=== PATIENT | female | born 1980 | race African-American/Black ===

== ENCOUNTER 2018-10-27 23:37 | Emergency (ER) | payer MEDICAID, OTHER ==
[~2018-10-27] VITALS: Ht 172.7 cm; Wt 90.7 kg
[2018-10-28 00:07] VITALS: BP 135/80
== END 2018-10-28 00:45 | disposition left against medical advice (07) ==
LOC: ER 23:37 → EDBD 23:37 → ER 10-28 00:45
DX: Z02.89 Encounter for other administrative examinations (principal); Z53.21 Procedure and treatment not carried out due to patient leaving prior to being seen by health care provider

== ENCOUNTER 2022-08-18 15:39 | Inpatient (IN) | payer MEDICAID ==
[~2022-08-18] VITALS: Ht 165.1 cm; Wt 89.0 kg
[2022-08-18] MEDS ORDERED: KETOROLAC TROMETH 30 MG/ML 1ML VIAL IV ONE (16:00)
[2022-08-18] MEDS ORDERED: SODIUM CHLORIDE 0.9% 1,000 ML IVB ONE (16:00)
[2022-08-18] MEDS ORDERED: PANTOPRAZOLE 40 MG/10 ML VIAL INJ IV ONE (16:00)
[2022-08-18 16:06] LABS: Basophils # (auto) 0.1 10 ^3/uL (0-0.2); Basophils % (auto) 0.5 % (0.0-2.0); Eosinophils # (auto) 0.2 10 ^3/uL (0-0.8); Eosinophils % (auto) 1.6 % (0.0-7.0); Hematocrit 46.7 % (36.0-46.0); Hemoglobin 15.5 g/dL (12.2-16.2); Lymphocytes # (auto) 1.7 10 ^3/uL (0.4-5.4); Lymphocytes % (auto) 15.4 % (10.0-50.0); Mean Corpuscular Hemoglobin 32.8 pg (28.0-32.0); Mean Corpuscular Hgb Conc. 33.3 g/dL (32.0-36.0); Mean Corpuscular Volume 98.5 fL (80.0-100.0); Neutrophils # (auto) 8.3 10 ^3/uL (1.6-8.6); Neutrophils % (auto) 73.5 % (37.0-80.0); Nucleated Red Blood Cells % 0.1 %; Red Blood Cells 4.74 10^6/uL (4.0-5.20); Red Cell Distribution Width 14.3 % (11.8-14.3); White Blood Cell 11.3 10^3/uL (4.4-10.8)
[2022-08-18 16:23] LABS: Calcium 10.2 mg/dL (8.5-10.1); Potassium 4.2 mmol/L (3.5-5.1)
[2022-08-18 16:28] LABS: BUN/Creatinine Ratio 9.8 (10.0-20.0); Bilirubin, Total 0.6 mg/dL (0.2-1.0); INR 1.04 (0.9-1.15); Total Protein 9.5 g/dL (6.4-8.2)
[2022-08-18] MEDS ORDERED: PANT40TA2 PO (17:19)
[2022-08-18] MEDS ORDERED: ONDA-144 PO (17:19)
[2022-08-18] MEDS ORDERED: SODIUM CHLORIDE 0.9% 1,000 ML IV ONE ×2 (17:30→20:15)
[2022-08-18] MEDS ORDERED: MORPHINE SULFATE INJ 2 MG/ml SYRG IV PRN (21:45)
[2022-08-18] MEDS ORDERED: ONDANSETRON HCL 4 MG/2 ML VIAL IV PRN (21:45)
[2022-08-18] MEDS ORDERED: ACETAMINOPHEN 325 MG TAB PO PRN (21:45)
[2022-08-19] VITALS (7 sets, daily range): BP systolic 119–132; BP diastolic 69–87
[2022-08-19] MEDS: HYDROcodone-ACET 5/325MG TAB PO PRN ×2 (00:51→18:10)
[2022-08-19] MEDS ORDERED: TRAZ1TAB12 PO (03:04)
[2022-08-19] MEDS ORDERED: SERT-160 PO (03:04)
[2022-08-19] MEDS ORDERED: LURA80TA PO (03:04)
[2022-08-19 06:06] LABS: Basophils # (auto) 0 10 ^3/uL (0-0.2); Basophils % (auto) 0.3 % (0.0-2.0); Eosinophils # (auto) 0.2 10 ^3/uL (0-0.8); Eosinophils % (auto) 2.1 % (0.0-7.0); Hematocrit 40.7 % (36.0-46.0); Hemoglobin 13.9 g/dL (12.2-16.2); Lymphocytes # (auto) 1.9 10 ^3/uL (0.4-5.4); Lymphocytes % (auto) 18.9 % (10.0-50.0); Mean Corpuscular Hemoglobin 33.9 pg (28.0-32.0); Mean Corpuscular Hgb Conc. 34.3 g/dL (32.0-36.0); Mean Corpuscular Volume 98.7 fL (80.0-100.0); Monocytes % (auto) 9.5 % (0.0-12.0); Neutrophils % (auto) 69.2 % (37.0-80.0); Nucleated Red Blood Cells % 0.2 %; Red Blood Cells 4.12 10^6/uL (4.0-5.20); Red Cell Distribution Width 13.6 % (11.8-14.3); White Blood Cell 10.1 10^3/uL (4.4-10.8)
[2022-08-19 06:25] LABS: Potassium 4.3 mmol/L (3.5-5.1)
[2022-08-19 06:33] LABS: Albumin 3.6 g/dL (3.4-5.0); BUN/Creatinine Ratio 11.1 (10.0-20.0); Bilirubin, Total 0.5 mg/dL (0.2-1.0); Total Protein 7.9 g/dL (6.4-8.2)
[2022-08-19] MEDS: LURASIDONE 60 MG PO SCH (18:00)
[2022-08-19] MEDS: ONDANSETRON ODT 4 MG TAB PO SCH (18:09)
[2022-08-19] MEDS: TEMAZEPAM 15 MG CAP PO PRN (20:10)
[2022-08-19] MEDS: traZODone HCL 50 MG TAB PO SCH (20:10)
[2022-08-20 05:00] VITALS: BP 118/78
[2022-08-20] MEDS: ONDANSETRON ODT 4 MG TAB PO SCH ×4 (06:17→17:55)
[2022-08-20] MEDS: HYDROcodone-ACET 5/325MG TAB PO PRN ×2 (06:42→21:40)
[2022-08-20 09:00] VITALS: BP 116/68
[2022-08-20] MEDS: PANTOPRAZOLE 40 MG TAB PO SCH (10:00)
[2022-08-20] MEDS: SERTRALINE HCL 50 MG TAB PO SCH (10:00)
[2022-08-20] MEDS ORDERED: MORPHINE SULFATE INJ 2 MG/ml SYRG IV PRN (11:45)
[2022-08-20] MEDS: SODIUM CHLORIDE 0.9% 1,000 ML IV SCH ×2 (11:49→21:15)
[2022-08-20 13:00] VITALS: BP 109/53
[2022-08-20 17:00] VITALS: BP 129/75
[2022-08-20] MEDS: LURASIDONE 60 MG PO SCH (17:55)
[2022-08-20 20:00] VITALS: BP 119/65
[2022-08-20] MEDS: traZODone HCL 50 MG TAB PO SCH (21:35)
[2022-08-20] MEDS: TEMAZEPAM 15 MG CAP PO PRN (21:35)
[2022-08-20 22:00] VITALS: BP 119/65
[2022-08-21] MEDS: ONDANSETRON ODT 4 MG TAB PO SCH ×3 (00:03→12:14)
[2022-08-21 05:00] VITALS: BP 103/56
[2022-08-21] MEDS: SODIUM CHLORIDE 0.9% 1,000 ML IV SCH (07:15)
[2022-08-21 09:00] VITALS: BP 97/62
[2022-08-21] MEDS ORDERED: cefTRIAXone 1GM/50ML D5W 50 ML IV SCH ×2 (09:00→13:15)
[2022-08-21] MEDS: SERTRALINE HCL 50 MG TAB PO SCH (09:54)
[2022-08-21] MEDS: PANTOPRAZOLE 40 MG TAB PO SCH (09:54)
[2022-08-21] MEDS ORDERED: hydrOXYzine 25 MG TAB or CAP PO PRN (12:30)
[2022-08-21 13:00] VITALS: BP 116/77
[2022-08-21] MEDS: HYDROcodone-ACET 5/325MG TAB PO PRN (13:28)
[2022-08-21] MEDS ORDERED: HYDR1CAP27 PO (14:58)
== END 2022-08-21 16:43 | disposition home or self-care (01) ==
LOC: ER 15:39 → OVERFLOW 21:42 → CENTRAL 08-19 01:22
PROVIDERS: ADMIT Nurse Practitioner; ATTEND Internal Medicine
DX: K82.8 Other specified diseases of gallbladder (principal); N17.9 Acute kidney failure, unspecified; K76.0 Fatty (change of) liver, not elsewhere classified; E11.9 Type 2 diabetes mellitus without complications; F10.10 Alcohol abuse, uncomplicated; F17.210 Nicotine dependence, cigarettes, uncomplicated; F31.60 Bipolar disorder, current episode mixed, unspecified; F41.9 Anxiety disorder, unspecified; F51.04 Psychophysiologic insomnia; Z20.822 Contact with and (suspected) exposure to COVID-19; Z88.0 Allergy status to penicillin; Z81.8 Family history of other mental and behavioral disorders; Z80.3 Family history of malignant neoplasm of breast; Z83.3 Family history of diabetes mellitus; Z85.43 Personal history of malignant neoplasm of ovary; Z91.51 Personal history of suicidal behavior
CPT/HCPCS: 36415; 74176; 74181; 76705; 78226; 80053; 83690; 85025; 85610; 85730; 87426; 96361; 96374; 96375; C9113; G0378; J0696; J1885; J2405; Q0162

== ENCOUNTER 2024-05-21 06:23 | Inpatient (IN) | payer MEDICAID ==
[~2024-05-21] VITALS: Ht 165.1 cm; Wt 86.8 kg
[~2024-05-21 06:23] MED LIST: BUPR200T49 PO; HYDR-3682 PO; HYDR1CAP27 PO; LURA80TA2 PO; ONDA-144 PO; PANT40TA2 PO; SERT-160 PO; TRAZ1TAB12 PO
[2024-05-21 07:06] LABS: Basophils # (auto) 0 10 ^3/uL (0-0.2); Basophils % (auto) 0.4 % (0.0-2.0); Eosinophils # (auto) 0 10 ^3/uL (0-0.8); Eosinophils % (auto) 0.6 % (0.0-7.0); Hematocrit 42.3 % (36.0-46.0); Hemoglobin 14.2 g/dL (12.2-16.2); Lymphocytes # (auto) 1.6 10 ^3/uL (0.4-5.4); Lymphocytes % (auto) 20.7 % (10.0-50.0); Mean Corpuscular Hemoglobin 31.9 pg (28.0-32.0); Mean Corpuscular Hgb Conc. 33.6 g/dL (32.0-36.0); Mean Corpuscular Volume 94.9 fL (80.0-100.0); Monocytes % (auto) 12.9 % (0.0-12.0); Neutrophils % (auto) 65.4 % (37.0-80.0); Nucleated Red Blood Cells % 0.2 %; Platelet Count (auto) 307 10^3/uL (140-450); Red Blood Cells 4.46 10^6/uL (4.0-5.20); Red Cell Distribution Width 14.6 % (11.8-14.3); White Blood Cell 7.7 10^3/uL (4.4-10.8)
--- NOTE | 2024-05-21 07:12 | ED.PDOC ---
GI ASSESSMENT HPI Comments 43Y F presents to ED for chief complaint abd pain x4 days. Additional symptoms include nausea, vomiting, dysuria, urinary frequency, and urinary urgency. Pt believes she has a UTI due to not drinking enough water. Per pt, abd pain starts at RUQ and radiates to LUQ. Abd pain worsens with coughing and current pain level is 9/10. Pt had similar episode in 07/2023. Pt does not follow up with GI. Chief Complaint: Abdominal Pain Time Seen by MD: 07:02 Primary Care Provider: JAYME Reviewed Notes: Medications, Allergies Allergies: Coded Allergies: Penicillins (Verified Allergy, Unknown, 08/18/22) Uncoded Allergies: PCN (Allergy, Intermediate, 10/28/18) Home Meds Active Scripts Hydroxyzine Pamoate (Hydroxyzine Pamoate) 25 Mg Cap, 25 MG PO TID PRN, #30 CAP Prov:DAVID FRANCO MD 08/21/22 Ondansetron (Zofran) 4 Mg Tab, 1 TAB PO Q6HR, #20 TAB Prov:ELIJAH MONTANA MD 08/18/22 Pantoprazole Sodium Sesquihydr (Protonix) 40 Mg Tab, 40 MG PO DAILY, #30 TAB Prov:ELIJAH MONTANA MD 08/18/22 Reported Medications Lurasidone Hcl (LATUDA) 80 Mg Tab, 60 MG PO HS, TAB 08/19/22 Trazodone Hcl (Trazodone Hcl) 150 Mg Tab, 150 MG PO HS, MG 08/19/22 Sertraline Hcl (Sertraline Hcl) 100 Mg Tab, 1 TAB PO DAILY, #90 TAB 1 Refill 08/19/22 Information Source: Patient Mode of Arrival: Ambulatory Timing: Days Duration: Since onset Quality: Sharp Vomitus: Watery Stool: Normal Severity: Moderate Recent: None Recent Hx of: None Pain Location: RUQ, LUQ Modifying Factors: Nothing Associated sign and symptoms: Nausea, Vomiting, Abdominal Pain, Other Past Medical History PAST MEDICAL HISTORY: Anxiety, Cancer, Depression, DM Surgical History: Surgical History (Other): left oophorectomy [employer]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 Family History Family History: Family hx of DM, Family hx of Cancer Social History Smoker: Non-Smoker Alcohol: Heavy Drugs: Denies Drug Use Lives In: Home Constitutional: denies: chills, diaphoresis, fatigue, fever, malaise, sweats, weakness, others EENTM: denies: blurred vision, double vision, ear bleeding, ear discharge, ear drainage, ear pain, ear ringing, eye pain, eye redness, hearing loss, mouth pain, mouth swelling, nasal discharge, nose bleeding, nose congestion, nose glenna n, photophobia, tearing, throat pain, throat swelling, voice changes, others Respiratory: denies: cough, hemoptysis, orthopnea, SOB at rest, shortness of breath, SOB with excertion, stridor, wheezing, others Cardiovascular: denies: chest pain, dizzy spells, diaphoresis, Dyspnea on exertion, edema, irregular heart beat, left arm pain, lightheadedness, palpitations, PND, syncope, others Gastrointestinal: reports: abdominal pain, nausea, poor fluid intake, vomiting; denies: abdomen distended, blood streaked bowels, constipated, diarrhea, dysphagia, difficulty swallowing, hematemesis, melena, poor appetite, rectal bleeding, rectal pain, others Genitourinary: reports: burning, dysuria, frequency, urgency; denies: abnormal vagina bleeding, dyspareunia, flank pain, hematuria, incontinence, pain, , vagina discharge, others Neurological: denies: dizziness, fainting, headache, left sided numbness, left sided weakness, numbness, paresthesia, pre-existing deficit, right sided numbness, right sided weakness, seizure, speech problems, tingling, tremors, weakness, others Musculoskeletal: denies: back pain, gout, joint pain, joint swelling, muscle pain, muscle stiffness, neck pain, others Integumetry: denies: bruises, change in color, change in hair/nails, dryness, laceration, lesions, lumps, rash, wounds, others Allergic/Immunocompromised: denies: Difficulty Healing, Frequent Infections, Hives, Itching, others Hematologic/Lymphatic: denies: anemia, blood clots, easy bleeding, easy bruising, swollen glands, others Endocrine: denies: excessive hunger, excessive sweating, excessive thirst, excessive urination, flushing, intolerance to cold, intolerance to heat, unexplained weight gain, unexplained weight loss, others Psychiatric: denies: anxiety, bipolar disorder, depression, hopeless, panic disorder, schizophrenia, sleepless, suicidal, others All Other Systems: Reviewed and Negative Physical Exam General Appearance: Moderate Distress, Normal HEENT: Normal ENT Inspection, Pharynx Normal, TMs Normal Neck: Full Range of Motion, Non-Tender, Normal, Normal Inspection Respiratory: Chest Non-Tender, Lungs Clear, No Accessory Muscle Use, No Respiratory Distress, Normal Breath Sounds Cardiovascular: No Edema, No JVD, No Murmur, No Gallop, Normal Peripheral Pulses, Regular Rate/Rhythm Breast Exam: Deferred Gastrointestinal: No Organomegaly, Non Tender, No Pulsatile Mass, Normal Bowel Sounds, Soft Genitalia: Deferred Pelvic: Deferred Rectal: Deferred Extremities: No calf tenderness, Normal capillary refill, Normal inspection, Normal range of motion, Non-tender, No pedal edema Musculoskeletal : Apperance: Normal 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 Was a procedure done?: No GI differential Dx Differential Diagnosis: Cholecystitis, Constipation, Diverticular disease, Esophagitis, Gastritis/PUD, Gastroenteritis, UTI, Electrolyte Imbalance, Bacterial, Viral X-Ray, Labs, Meds, VS Vital Signs Date Time Temp Pulse Resp B/P (MAP) Pulse Ox O2 Delivery O2 Flow Rate FiO2 05/21/24 09:34 Room Air* 0 21 05/21/24 09:05 98.6 89 18 143/84 (103) 97 98.6 05/21/24 08:18 91 18 132/85 05/21/24 07:44 98 18 135/85 05/21/24 07:27 98 18 95 Room Air 05/21/24 07:27 98.7 98 18 135/85 (102) 95 98.7 05/21/24 06:39 98.2 115 20 111/93 (99) 99 Lab Test 05/21/24 06:40 Range/Units White Blood Count 7.7 4.4-10.8 10^3/uL Red Blood Count 4.46 4.0-5.20 10^6/uL Hemoglobin 14.2 12.2-16.2 g/dL Hematocrit 42.3 36.0-46.0 % Mean Corpuscular Volume 94.9 80.0-100.0 fL Mean Corpuscular Hemoglobin 31.9 28.0-32.0 pg Mean Corpuscular Hemoglobin Concent 33.6 32.0-36.0 g/dL Red Cell Distribution Width 14.6 H 11.8-14.3 % Platelet Count 307 140-450 10^3/uL Mean Platelet Volume 8.5 6.9-10.8 fL Neutrophils (%) (Auto) 65.4 37.0-80.0 % Lymphocytes (%) (Auto) 20.7 10.0-50.0 % Monocytes (%) (Auto) 12.9 H 0.0-12.0 % Eosinophils (%) (Auto) 0.6 0.0-7.0 % Basophils (%) (Auto) 0.4 0.0-2.0 % Neutrophils # (Auto) 5.0 1.6-8.6 10 ^3/uL Lymphocytes # (Auto) 1.6 0.4-5.4 10 ^3/uL Monocytes # (Auto) 1.0 0-1.3 10 ^3/uL Eosinophils # (Auto) 0 0-0.8 10 ^3/uL Basophils # (Auto) 0 0-0.2 10 ^3/uL Nucleated Red Blood Cells 0.2 % Sodium Level 135 L 136-145 mmol/L Potassium Level 3.4 L 3.5-5.1 mmol/L Chloride Level 98 98-107 mmol/L Carbon Dioxide Level 28 20-31 mmol/L Anion Gap 9 5-15 Blood Urea Nitrogen 5 L 9-23 mg/dL Creatinine 0.84 0.550-1.02 mg/dL Glomerular Filtration Rate Calc 87 >90 mL/min BUN/Creatinine Ratio 6.0 L 10.0-20.0 Serum Glucose 117 H 74-106 mg/dL Calcium Level 9.3 8.7-10.4 mg/dL Current Medications Medications (Trade) Dose Ordered Sig/Renée Route Start Time Stop Time Status Last Admin Ondansetron HCl (Zofran) 4 mg ONCE ONCE IV 05/21/24 07:15 05/21/24 07:16 DC 05/21/24 07:44 Sodium Chloride 1,000 ml @ 1,000 mls/hr Q1H ONCE IVB 05/21/24 07:15 05/21/24 08:14 DC 05/21/24 07:44 Morphine Sulfate 4 mg ONCE ONCE IV 05/21/24 07:15 05/21/24 07:16 DC 05/21/24 07:44 Patient alert. Complaining of abdominal pain. Vitals stable. Answering all questions. WBC within normal limits. Hemoglobin within normal limits. Continues to have abdominal pain. Establish intravenous access. Was given fluids. Was given morphine. Was given Zofran. Reviewed her previous visit. Explained to the patient. Continue cardiac monitoring. Time of 1ST Reevaluation: 07:32 Reevaluation 1ST: Unchanged Patient Education/Counseling: Diagnosis, Treatment Family Education/Counseling: No Family Present Additional Information I reviewed the following notes from patient's past medical encounters: [facility] discharge 08/18/2022 dx elevated liver enzymes, abd pain with n/v The following tests were ordered, and results were reviewed by me: CBC, BMP, UA I discussed treatment and results with medical personnel and hospitalist Departure 1 Departure Time of Disposition: 07:16 Impression: Primary Impression: Acute abdominal pain Disposition: ADMITTED INPATIENT Admit to: Med Surg Condition: Guarded Critical Care Note Critical Care Time?: No Stability Stability form required: No Heart Score Heart Score: Heart Score Response (Comments) Value History N/A 0 EKG N/A 0 Age N/A 0 Risk Factors N/A 0 Troponin N/A 0 Total 0 I personally scribed for ANTHONY OSMAN MD ([email or web address]) on 05/21/24 at 07:12. Electronically submitted by Danyell Segura ([employer]). I personally scribed for ANTHONY OSMAN MD ([email or web address]) on 05/21/24 at 10:39. Electronically submitted by Danyell Segura ([employer]). ANTHONY OSMAN MD May 21, 2024 07:12
[2024-05-21 07:20] LABS: Anion Gap 9 (5-15); Calcium 9.3 mg/dL (8.7-10.4); Carbon Dioxide 28 mmol/L (20-31)
[2024-05-21 07:35] LABS: Blood Urea Nitrogen 5 mg/dL (9-23); Chloride 98 mmol/L (98-107); Glucose 117 mg/dL (74-106); Potassium 3.4 mmol/L (3.5-5.1); Sodium 135 mmol/L (136-145)
[2024-05-21] MEDS: SODIUM CHLORIDE 0.9% 1,000 ML IVB ONE (07:44)
[2024-05-21] MEDS: ONDANSETRON HCL 4 MG/2 ML VIAL IV ONE (07:44)
[2024-05-21] MEDS: MORPHINE SULFATE 4 MG/ML SYR/VIAL IV ONE (07:44)
[2024-05-21] MEDS ORDERED: DOCUSATE SOD 100 MG CAP PO PRN (11:30)
[2024-05-21] MEDS ORDERED: NITROGLYCERIN 0.4 MG SL TAB SL PRN (11:30)
[2024-05-21] MEDS: POTASSIUM CHL 20 Meq TABLET PO ONE (11:30)
--- NOTE | 2024-05-21 11:34 | DVHHP2 ---
History of Present Illness Reason for Visit: abd pain History of Present Illness 43 yr old female pmh diverticulosis, anxiety, depression, dm, fatty liver disease, fibroids surgical history left oophorectomy ovarian cancer chief complaint patient complains of pain in her left upper abdomen he also radiates to his right side of the abdomen. Patient states it is like a sharp pain she also complain of urinary frequency and urgency and darkness color to the urine she denies any blood in her urine no flank pain no fever no chest pain no shortness with the breath. She denies any vaginal bleeding no odor no discharge. Patient states the pain is worse when she moved or cough nothing makes it better. She states it feels like the gallbladder issues she had when she came last year in 2022 she was concerned for that. When evaluating patient's labs and imaging from the ED morphine was given normal saline Zofran CBC was unremarkable sodium was 135 potassium was 3.4 glucose was 117. No imaging was completed prior to admission. With these findings we will admit patient for further workup and care Past Medical History See HPI above Past Surgical History See HPI above Family History Reviewed, non-contributory to the management of this case. Past Social History Patient does admit to drinking alcohol pretty heavy since Thanksgiving last drink was yesterday denies any drug use Review of Systems Constitutional: No: Fever, Chills, Sweats, Weakness, Malaise, Other Eyes: No: Pain, Vision change, Conjunctivae inflammation, Eyelid inflammation, Other, Redness ENT: No: Ear pain, Ear discharge, Nose pain, Nose discharge, Nose congestion, Mouth pain, Mouth swelling, Throat pain, Throat swelling, Other Respiratory: No: Cough, Dry, Shortness of breath, SOB with excertion, Wheezing, Hemoptysis, Pleuritic Pain, Sputum, Wheezing, Other Cardiovascular: No: Chest Pain, Palpitations, Orthopnea, Paroxysmal Noc. Dyspnea, Edema, Lt Headedness, Other Gastrointestinal: Nausea, Abdominal Pain; No: Vomiting, Diarrhea, Constipation, Melena, Hematochezia, Other Genitourinary: Dysuria, Frequency; No Incontinence, No Hematuria, No Retention, No Other Musculoskeletal: No: other, neck pain, shoulder pain, arm pain, back pain, hand pain, leg pain, foot pain Skin: No: Rash, Lesions, Jaundice, Bruising, Other Neurological: No: Weakness, Numbness, Incoordination, Change in speech, Co nfusion, Seizures, Other Allergies: Coded Allergies: Penicillins (Verified Allergy, Unknown, 08/18/22) Uncoded Allergies: PCN (Allergy, Intermediate, 10/28/18) Exam Vital Signs Vital Signs Date Time Temp Pulse Resp B/P (MAP) Pulse Ox O2 Delivery O2 Flow Rate FiO2 05/21/24 10:30 83 16 142/72 (95) 96 05/21/24 09:34 Room Air* 0 21 05/21/24 09:05 98.6 98.6 General Appearance: Alert, Oriented X3, Cooperative, No acute distress HEENT: Atraumatic, PERRLA, EOMI, Mucous membr. moist/pink Respiratory: Clear to auscultation, Normal air movement Cardiovascular: Regular rate, Normal S1, Normal S2, No murmurs Abdominal: Normal bowel sounds, Soft, No hepatospenomegaly, No masses, Other (Guarding to right upper quadrant of abdomen no CVA tenderness) Extremities: No clubbing, No cyanosis, No edema, Normal pulses, No tenderness/swelling Skin: No rashes, No breakdown, No significant lesion Neuro: Normal gait, Normal speech, Strength at 5/5 X4 ext, Normal tone, Sensation intact, Cranial nerves 3-12 NL Psych/Mental Status: Mental status NL, Mood NL Labs/Xrays I reviewed labs, , EKG and all diagnostic studies on this patient from ED records and the medical chart Labs Test 05/21/24 06:40 Range/Units White Blood Count 7.7 4.4-10.8 10^3/uL Red Blood Count 4.46 4.0-5.20 10^6/uL Hemoglobin 14.2 12.2-16.2 g/dL Hematocrit 42.3 36.0-46.0 % Mean Corpuscular Volume 94.9 80.0-100.0 fL Mean Corpuscular Hemoglobin 31.9 28.0-32.0 pg Mean Corpuscular Hemoglobin Concent 33.6 32.0-36.0 g/dL Red Cell Distribution Width 14.6 H 11.8-14.3 % Platelet Count 307 140-450 10^3/uL Mean Platelet Volume 8.5 6.9-10.8 fL Neutrophils (%) (Auto) 65.4 37.0-80.0 % Lymphocytes (%) (Auto) 20.7 10.0-50.0 % Monocytes (%) (Auto) 12.9 H 0.0-12.0 % Eosinophils (%) (Auto) 0.6 0.0-7.0 % Basophils (%) (Auto) 0.4 0.0-2.0 % Neutrophils # (Auto) 5.0 1.6-8.6 10 ^3/uL Lymphocytes # (Auto) 1.6 0.4-5.4 10 ^3/uL Monocytes # (Auto) 1.0 0-1.3 10 ^3/uL Eosinophils # (Auto) 0 0-0.8 10 ^3/uL Basophils # (Auto) 0 0-0.2 10 ^3/uL Nucleated Red Blood Cells 0.2 % Sodium Level 135 L 136-145 mmol/L Potassium Level 3.4 L 3.5-5.1 mmol/L Chloride Level 98 98-107 mmol/L Carbon Dioxide Level 28 20-31 mmol/L Anion Gap 9 5-15 Blood Urea Nitrogen 5 L 9-23 mg/dL Creatinine 0.84 0.550-1.02 mg/dL Glomerular Filtration Rate Calc 87 >90 mL/min BUN/Creatinine Ratio 6.0 L 10.0-20.0 Serum Glucose 117 H 74-106 mg/dL Calcium Level 9.3 8.7-10.4 mg/dL Assessment/Plan Assessment/Plan acute intractable abdominal pain No imaging was completed prior to admission Order CT scan abdomen and pelvis follow up results npo for now ordered ivf ordered protonix ordered morphine prn pain acute mild hypokalemia Replete K Order Mag phos follow up results acute etoh use last use yesterday using daily for the last month ordered Ativan as needed for withdrawal symptoms monitor for etoh withdrawal Order alcohol level uncontrolled type 2 dm Order insulin sliding scale chronic anxiety/depression Continue home meds chronic diverticulosis Avoid seedy foods High-fiber diet Outpatient follow up with GI chronic fibroids outpt follow up with inoculator chronic fatty liver disease outpt follow up with gi fen/ppx npo ivf protonix no dvt ppx since pt is ambulatory plan admit to medicine fu ct scan results Plan discussed with: Patient My Orders Orders - NAPOLEON MAURICIO DNP Procedure Category Date Status Time Ct Ab Pel Wo Con-No CT 05/21/24 Logged Oral Or Iv 10:13 Test, Urine LAB 05/21/24 Logged 10:13 Admit ADMIT 05/21/24 Verified 11:27 Allergies JOHNATHAN 05/21/24 Verified 11:27 Code Status CODE 05/21/24 Verified 11:27 0.9% Ns 1000 Ml PHA 05/21/24 Verified 11:30 Ondansetron Hcl PHA 05/21/24 Verified (Zofran) 11:30 Docusate Sodium PHA 05/21/24 Verified Capsule (Colace 11:30 Complete Blood Count LAB 05/22/24 Verified 04:00 Comprehensive LAB 05/22/24 Verified Metabolic Panel 04:00 Npo (Nothing By DIET 05/21/24 Verified Mouth) Diet Lunch Condition: Stable JOHNATHAN 05/21/24 Verified 11:27 BRP JOHNATHAN 05/21/24 Verified 11:27 Morphine Sulfate PHA 05/21/24 Verified Injection 11:30 Sequential JOHNATHAN 05/21/24 Verified Compression Device Nitroglycerin PHA 05/21/24 Verified Sublingual (Ntrostat 11:30 Stat Ekg For Chest JOHNATHAN 05/21/24 Verified Pain 11:27 Notify Md Of Changes JOHNATHAN 05/21/24 Verified From Base 11:27 Blue Crabber For [facility] 05/21/24 Verified 24 Hours 11:27 Emergency Dysrhythmia JOHNATHAN 05/21/24 Verified Protocol 11:27 Rhythm Strips Once [facility] 05/21/24 Verified Every Shift 11:27 Oxygen By Nasal RT 05/21/24 Verified Cannula 11:27 Potassium Er Tablet PHA 05/21/24 Verified (Klor-Con Tablet) 11:30 Magnesium LAB 05/21/24 Verified 11:27 Phosphorus LAB 05/21/24 Verified 11:27 Date of Service: May 21, 2024 Billing Provider: NAPOLEON MAURICIO DNP Common Visit Codes: [id number] INP/OBS CARE (HIGH) NAPOLEON MAURICIO DNP May 21, 2024 11:34
[2024-05-21 11:49] LABS: Magnesium 1.6 mg/dL (1.6-2.6)
[2024-05-21 11:49] LABS: Urine Bacteria None Seen /hpf (None Seen)
[2024-05-21 11:51] LABS: Phosphorus 1.8 mg/dL (2.4-5.1)
[2024-05-21 12:15] LABS: Urine Blood Negative /uL (Negative); Urine Clarity Turbid (Clear); Urine Color Yellow (Yellow); Urine Mucus FEW (None Seen); Urine Protein, UAD 1+ (Negative); Urine Specific Gravity 1.023 (1.001-1.035); Urine Urobilinogen Normal (Negative); Urine WBC 1 /hpf (0 - 5)
[2024-05-21] MEDS: SODIUM CHLORIDE 0.9% 1,000 ML IV SCH (12:58)
[2024-05-21 13:00] VITALS: BP 121/72; PULSE 84; RESP 18; TEMP 98.3; O2SAT 94
--- NOTE | 2024-05-21 13:05 | DVH ---
CT ABDOMEN AND PELVIS WITHOUT CONTRAST CLINICAL HISTORY: abd pain TECHNIQUE: Multiple contiguous axial images of the abdomen and pelvis without intravenous contrast. The images were reformatted degenerate coronal and sagittal reconstructions. All CT scans at this medical facility are performed using dose modulation techniques as appropriate t o a performed exam including the following:Automated exposure control was utilized; adjustment of the MA and/or KV according to patient size; and use of iterative reconstruction technique. Radiation Dose Information: CT Dose: CTDI volume is 17 mGy. Dose-length product is 911 mGy*cm Comparison: CT CT AB PEL WO CON-NO ORAL OR IV on DOS: 08/18/22 FINDINGS: Evaluation of the abdomen and pelvis is limited without intravenous contrast. The gallbladder contents appear mildly hyperdense related to sludge. There is mild fatty infiltration of the liver. The liver, pancreas, kidneys, adrenal glands, and spleen appear within normal limit s. There is no gross evidence of abdominal lymphadenopathy. There is no free fluid or free air. The stomach grossly appears unremarkable. The small and large bowel loops demonstrate normal caliber . There are multiple diverticula in the distal colon without evidence of acute diverticulitis. The abdominal aorta and IVC appear within normal limits. The bladder appears unremarkable for the degree of distention. The uterus appears bulky likely relate d to fibroid uterus.. There is no gross evidence of a pelvic mass. There is no free fluid collection . Lung bases are clear. There is no acute osseous abnormality. IMPRESSION: 1. Distal colon diverticulosis without evidence of acute diverticulitis. 2. Mild fatty infiltration of the liver. 3. Mildly hyperdense sludge in the gallbladder. 4. Fibroid uterus. HS:Y
[2024-05-21 13:28] VITALS: BP 116/72; PULSE 83; RESP 18; TEMP 98.4; O2SAT 94; O2SAT 95
[2024-05-21] MEDS: MORPHINE SULFATE INJ 2 MG/ml SYRG IV PRN (14:26)
[2024-05-21] MEDS ORDERED: DEXTROSE (50%) 50ML SYRG IV PRN (16:15)
[2024-05-21] MEDS ORDERED: LORazepam 2MG/ML-1ML VIAL IV PRN (16:15)
[2024-05-21] MEDS ORDERED: hydrOXYzine 25 MG TAB or CAP PO PRN (16:15)
[2024-05-21] MEDS: PANTOPRAZOLE 40 MG/10 ML VIAL INJ IV ONE (16:35)
[2024-05-21 16:36] VITALS: BP 115/71; PULSE 89; RESP 18; TEMP 98.2; O2SAT 94
[2024-05-21] MEDS: ACCU-CHEK COMFORT CURVE STRIP VI SCH (18:00)
[2024-05-21] MEDS: InsuLIN REG 1unit/0.01ml Soln (100units/ml) SC SCH (18:00)
[2024-05-21] MEDS: SODIUM PHOSPHATES 20 MEQ in SODIUM CHL 0.9% 100 ML IV ONE (19:00)
[2024-05-21] MEDS: FOLIC ACID 1 MG, MAGNESIUM SULF SDV 50% 8 MEQ, MULTIPLE VITAMIN 10 ML, THIAMINE INJ 100... INJ SCH (19:57)
[2024-05-21 20:00] VITALS: PULSE 82; RESP 19; O2SAT 95
[2024-05-21 21:00] VITALS: BP 118/72; PULSE 82; RESP 19; TEMP 97.9; O2SAT 95
[2024-05-21] MEDS: traZODone HCL 50 MG TAB PO SCH (22:17)
[2024-05-22] VITALS (8 sets, daily range): BP systolic 103–127; BP diastolic 53–76; PULSE 66–83; RESP 18–20; TEMP 97.3–97.7; O2SAT 90–99
[2024-05-22 06:10] LABS: Basophils # (auto) 0 10 ^3/uL (0-0.2); Basophils % (auto) 0.5 % (0.0-2.0); Eosinophils # (auto) 0 10 ^3/uL (0-0.8); Eosinophils % (auto) 1.5 % (0.0-7.0); Hemoglobin 12.4 g/dL (12.2-16.2); Lymphocytes # (auto) 1.4 10 ^3/uL (0.4-5.4); Lymphocytes % (auto) 42.8 % (10.0-50.0); Mean Corpuscular Hgb Conc. 33.4 g/dL (32.0-36.0); Mean Corpuscular Volume 95.7 fL (80.0-100.0); Monocytes # (auto) 0.5 10 ^3/uL (0-1.3); Monocytes % (auto) 15.4 % (0.0-12.0); Neutrophils # (auto) 1.3 10 ^3/uL (1.6-8.6); Neutrophils % (auto) 39.8 % (37.0-80.0); Nucleated Red Blood Cells % 0.4 %; Platelet Count (auto) 239 10^3/uL (140-450); Red Blood Cells 3.86 10^6/uL (4.0-5.20); Red Cell Distribution Width 14.8 % (11.8-14.3); White Blood Cell 3.2 10^3/uL (4.4-10.8)
[2024-05-22 06:25] LABS: Albumin 3.3 g/dL (3.2-4.8); Alkaline Phosphatase 79 U/L (46-116); Anion Gap 5 (5-15); Carbon Dioxide 27 mmol/L (20-31); Glucose 91 mg/dL (74-106); Potassium 3.9 mmol/L (3.5-5.1); Sodium 141 mmol/L (136-145); Total Protein 6.2 g/dL (5.7-8.2)
[2024-05-22 07:03] LABS: Alanine Aminotransferase 51 U/L (7-40); Aspartate Aminotransferase 69 U/L (13-40); BUN/Creatinine Ratio 7.6 (10.0-20.0); Bilirubin, Total 0.3 mg/dL (0.2-1.0); Blood Urea Nitrogen < 5 mg/dL (9-23); Calcium 8.6 mg/dL (8.7-10.4); Chloride 109 mmol/L (98-107)
[2024-05-22] MEDS: SERTRALINE HCL 50 MG TAB PO SCH (08:35)
[2024-05-22] MEDS: PANTOPRAZOLE 40 MG/10 ML VIAL INJ IV SCH (08:35)
[2024-05-22] MEDS: ONDANSETRON HCL 4 MG/2 ML VIAL IV PRN (08:39)
--- NOTE | 2024-05-22 11:55 | DVHPN2 ---
Subjective The patient is seen and examined at bedside. Complain of abdominal pain. No nausea or vomiting. Reviewed: Care Plan, H&P, Labs, Medications, Previous Orders, Radiology Changes from previous H/P or p: No Changes Eyes: No Pain, No Vision change, No Conjunctivae inflammation, No Eyelid inflammation, No Other, No Redness ENT: No Ear pain, No Ear discharge, No Nose pain, No Nose discharge, No Nose congestion, No Mouth pain, No Mouth swelling, No Throat pain, No Throat swelling, No Other Cardiovascular: No Chest Pain, No Palpitations, No Orthopnea, No Paroxysmal Noc. Dyspnea, No Edema, No Lt Headedness, No Other Respiratory: No Cough, No Dry, No Shortness of breath, No SOB with excertion, No Wheezing, No Hemoptysis, No Pleuritic Pain, No Sputum, No Other Gastrointestinal: Nausea; No Vomiting; Abdominal Pain; No Diarrhea, No Constipation, No Melena, No Hematochezia, No Other Genitourinary: Dysuria, Frequency; No Incontinence, No Hematuria, No Retention, No Other Musculoskeletal: No other, No neck pain, No shoulder pain, No arm pain, No back pain, No hand pain, No leg pain, No foot pain Skin: No Rash, No Lesions, No Jaundice, No Bruising, No Other Objective Vitals Vital Signs Date Time Temp Pulse Resp B/P (MAP) Pulse Ox O2 Delivery O2 Flow Rate FiO2 05/22/24 09:00 97.5 83 18 127/76 (93) 99 97.5 05/21/24 20:00 Room Air* 0 21 Intake/Output Intake and Output 05/22/24 07:00 Intake Total 1865 ml Output Total 750 ml Balance 1115 ml Intake Oral 1205 ml IV Total 660 ml Output Urine Total 750 ml Stool Total 0 ml # Voids 1 General Appearance: Alert, Oriented X3, Cooperative, No acute distress HEENT: Atraumatic, PERRLA, EOMI, Mucous membr. moist/pink Neck: Supple Lungs: Clear to auscultation, Normal air movement Cardiovascular: Regular rate, Normal S1, Normal S2, No murmurs, Gallops, Rubs Abdomen: Normal bowel sounds, Soft, No tenderness Neuro: Cranial nerves 3-12 NL Psych/Mental Status: Mental status NL Medications Current Medications Medications Dose Ordered Sig/Renée Route Start Time Stop Time Status Last Admin Dose Admin Sodium Chloride 1,000 ml @ 120 mls/hr Q8H20M IV 05/21/24 11:30 05/22/24 10:26 120 MLS/HR Ondansetron HCl 4 mg Q4HP PRN IV 05/21/24 11:30 05/22/24 08:39 4 MG Docusate Sodium 100 mg BIDPRN PRN PO 05/21/24 11:30 Morphine Sulfate 2 mg Q4HPRN PRN IV 05/21/24 11:30 05/22/24 08:42 2 MG Nitroglycerin 0.4 mg Q5MINP PRN SL 05/21/24 11:30 Pantoprazole Sodium 40 mg DAILY IV 05/22/24 10:00 05/22/24 08:35 40 MG Diagnostic Test (Pha) 1 strip Q6HR 05/21/24 18:00 05/22/24 05:27 1 STRIP Insulin Human Regular Q6HR SC 05/21/24 18:00 Dextrose 50 ml UD PRN IV 05/21/24 16:15 Hydroxyzine Pamoate 25 mg TID PRN PO 05/21/24 16:15 Patient Own Medication 60 mg HS PO 05/21/24 22:00 Sertraline HCl 100 mg DAILY PO 05/22/24 10:00 05/22/24 08:35 100 MG Trazodone HCl 150 mg HS PO 05/21/24 22:00 05/21/24 22:17 150 MG Lorazepam 1 mg Q6HP PRN IV 05/21/24 16:15 Folic Acid 1 mg DAILY PO 05/23/24 10:00 Multivitamins 1 tab DAILY PO 05/23/24 10:00 Magnesium Oxide 400 mg DAILY PO 05/23/24 10:00 Thiamine HCl 100 mg DAILY PO 05/23/24 10:00 Laboratory Results Laboratory Tests 05/22/24 05:41 Chemistry Test 05/22/24 05:41 Albumin 3.3 g/dL (3.2-4.8) Calcium Level 8.6 mg/dL (8.7-10.4) L Total Protein 6.2 g/dL (5.7-8.2) LFT Test 05/22/24 05:41 Alanine Aminotransferase (ALT) 51 U/L (7-40) H Alkaline Phosphatase 79 U/L (46-116) Aspartate Amino Transferase (AST) 69 U/L (13-40) H Total Bilirubin 0.3 mg/dL (0.2-1.0) Urinalysis Test 05/21/24 07:38 Urine Color Yellow (Yellow) Urine Clarity Turbid (Clear) H Urine pH 6.0 (5.0-9.0) Urine Specific [place] 1.023 (1.001-1.035) Urine Protein 1+ (Negative) H Urine Ketones 1+ (Negative) H Urine Blood Negative /uL (Negative) Urine Nitrite Negative (Negative) Urine Bilirubin Negative (Negative) Urine Urobilinogen Normal mg/dL (Negative) Urine Leukocyte Esterase Negative /uL (Negative) Urine RBC 1 /hpf (0 - 4) Urine WBC 1 /hpf (0 - 5) Urine Squamous Epithelial Cells Many /hpf (<5) Urine Bacteria None seen /hpf (None Seen) Urine Mucus Few (None Seen) Urine Glucose Normal mg/dL (Normal) Urine Test Negative (Negative) Labs and/or images reviewed: Labs reviewed by me Assessment/Plan Assessment/Plan acute intractable abdominal pain acute mild hypokalemia acute etoh use last use yesterday using daily for the last month uncontrolled type 2 dm chronic anxiety/depression chronic diverticulosis chronic fibroids Chronic fatty liver disease Continuing current management. Continuing with IV morphine for pain control. Advance diet as tolerated. Replace electrolytes as needed. Advised the patient to stop using alcohol. CT abdomen pelvis review show diverticulosis without diverticulitis. Continuing empiric IV antibiotic. Continuing sliding scale insulin. Encouraged the patient to be out of bed and ambulate. Continuing Ativan p.r.n. for alcohol withdrawal and also for anxiety. Plan discussed with: Patient Date of Service: May 22, 2024 Billing Provider: LEXI VASQUEZ MD Common Visit Codes: [id number] INP/OBS CARE(HIGH) LEXI VASQUEZ MD May 22, 2024 11:55
[2024-05-22] MEDS: MULTIPLE VITAMIN TAB PO ONE (12:35)
[2024-05-22] MEDS: THIAMINE HCL 100 MG TAB PO ONE (12:35)
[2024-05-22] MEDS: FOLIC ACID 1 MG TAB PO ONE (12:35)
[2024-05-22] MEDS: MAGNESIUM OXIDE 400 MG TAB PO ONE (12:35)
[2024-05-23] MEDS: guaiFENesin-CODEINE Liq 5 ML UD PO ONE (01:00)
[2024-05-23 05:00] VITALS: BP 112/64; PULSE 74; RESP 19; TEMP 97.9; O2SAT 94
[2024-05-23 09:00] VITALS: BP 124/82; PULSE 68; RESP 16; TEMP 97.8; O2SAT 94
[2024-05-23 09:05] LABS: Basophils # (auto) 0 10 ^3/uL (0-0.2); Basophils % (auto) 0.2 % (0.0-2.0); Eosinophils # (auto) 0.1 10 ^3/uL (0-0.8); Eosinophils % (auto) 1.5 % (0.0-7.0); Hematocrit 38.7 % (36.0-46.0); Hemoglobin 12.9 g/dL (12.2-16.2); Lymphocytes # (auto) 1.8 10 ^3/uL (0.4-5.4); Lymphocytes % (auto) 30.7 % (10.0-50.0); Mean Corpuscular Hemoglobin 31.9 pg (28.0-32.0); Mean Corpuscular Hgb Conc. 33.3 g/dL (32.0-36.0); Mean Corpuscular Volume 95.8 fL (80.0-100.0); Monocytes # (auto) 0.7 10 ^3/uL (0-1.3); Monocytes % (auto) 11.8 % (0.0-12.0); Neutrophils # (auto) 3.3 10 ^3/uL (1.6-8.6); Neutrophils % (auto) 55.8 % (37.0-80.0); Nucleated Red Blood Cells % 0.1 %; Platelet Count (auto) 251 10^3/uL (140-450); Red Blood Cells 4.04 10^6/uL (4.0-5.20); Red Cell Distribution Width 14.2 % (11.8-14.3); White Blood Cell 5.9 10^3/uL (4.4-10.8)
[2024-05-23 09:13] LABS: Calcium 9.2 mg/dL (8.7-10.4); Sodium 143 mmol/L (136-145)
[2024-05-23 09:14] LABS: Anion Gap 6 (5-15); Carbon Dioxide 27 mmol/L (20-31)
[2024-05-23 09:19] LABS: BUN/Creatinine Ratio 7.4 (10.0-20.0); Blood Urea Nitrogen < 5 mg/dL (9-23); Chloride 110 mmol/L (98-107); Glucose 87 mg/dL (74-106)
[2024-05-23] MEDS: FOLIC ACID 1 MG TAB PO SCH (09:41)
[2024-05-23] MEDS: MAGNESIUM OXIDE 400 MG TAB PO SCH (09:41)
[2024-05-23] MEDS: MULTIPLE VITAMIN TAB PO SCH (09:42)
[2024-05-23] MEDS: THIAMINE HCL 100 MG TAB PO SCH (09:48)
[2024-05-23 13:00] VITALS: BP 114/70; PULSE 75; RESP 16; TEMP 98.2; O2SAT 95
--- NOTE | 2024-05-23 13:39 | DVHDS2 ---
Discharge Summary Date of Admission May 21, 2024 at 11:27 Date of Discharge: May 23, 2024 Admitting Diagnosis Abdominal pain Labs/Diagnostic Data: Laboratory Results Test 05/23/24 08:07 05/22/24 23:38 05/22/24 05:41 05/21/24 07:38 White Blood Count 5.9 10^3/uL (4.4-10.8) Red Blood Count 4.04 10^6/uL (4.0-5.20) Hemoglobin 12.9 g/dL (12.2-16.2) Hematocrit 38.7 % (36.0-46.0) Mean Corpuscular Volume 95.8 fL (80.0-100.0) Mean Corpuscular Hemoglobin 31.9 pg (28.0-32.0) Mean Corpuscular Hemoglobin Concent 33.3 g/dL (32.0-36.0) Red Cell Distribution Width 14.2 % (11.8-14.3) Platelet Count 251 10^3/uL (140-450) Mean Platelet Volume 9.2 fL (6.9-10.8) Neutrophils (%) (Auto) 55.8 % (37.0-80.0) Lymphocytes (%) (Auto) 30.7 % (10.0-50.0) Monocytes (%) (Auto) 11.8 % (0.0-12.0) Eosinophils (%) (Auto) 1.5 % (0.0-7.0) Basophils (%) (Auto) 0.2 % (0.0-2.0) Neutrophils # (Auto) 3.3 10 ^3/uL (1.6-8.6) Lymphocytes # (Auto) 1.8 10 ^3/uL (0.4-5.4) Monocytes # (Auto) 0.7 10 ^3/uL (0-1.3) Eosinophils # (Auto) 0.1 10 ^3/uL (0-0.8) Basophils # (Auto) 0 10 ^3/uL (0-0.2) Nucleated Red Blood Cells 0.1 % Sodium Level 143 mmol/L (136-145) Potassium Level 4.0 mmol/L (3.5-5.1) Chloride Level 110 mmol/L (98-107) Carbon Dioxide Level 27 mmol/L (20-31) Anion Gap 6 (5-15) Blood Urea Nitrogen < 5 mg/dL (9-23) Creatinine 0.68 mg/dL (0.550-1.02) Glomerular Filtration Rate Calc 109 mL/min (>90) BUN/Creatinine Ratio 7.4 (10.0-20.0) Serum Glucose 87 mg/dL (74-106) Calcium Level 9.2 mg/dL (8.7-10.4) POC Glucose 103 mg/dl (70-106) Total Bilirubin 0.3 mg/dL (0.2-1.0) Aspartate Amino Transferase (AST) 69 U/L (13-40) Alanine Aminotransferase (ALT) 51 U/L (7-40) Alkaline Phosphatase 79 U/L (46-116) Total Protein 6.2 g/dL (5.7-8.2) Albumin 3.3 g/dL (3.2-4.8) Urine Color Yellow (Yellow) Urine Clarity Turbid (Clear) Urine pH 6.0 (5.0-9.0) Urine Specific [place] 1.023 (1.001-1.035) Urine Protein 1+ (Negative) Urine Ketones 1+ (Negative) Urine Blood Negative /uL (Negative) Urine Nitrite Negative (Negative) Urine Bilirubin Negative (Negative) Urine Urobilinogen Normal mg/dL (Negative) Urine Leukocyte Esterase Negative /uL (Negative) Urine RBC 1 /hpf (0 - 4) Urine WBC 1 /hpf (0 - 5) Urine Squamous Epithelial Cells Many /hpf (<5) Urine Bacteria None seen /hpf (None Seen) Urine Mucus Few (None Seen) Urine Glucose Normal mg/dL (Normal) Urine Test Negative (Negative) Test 05/21/24 06:40 Phosphorus Level 1.8 mg/dL (2.4-5.1) Magnesium Level 1.6 mg/dL (1.6-2.6) Lipase 57 U/L (12-53) Vitamin B12 Level 589 pg/mL (211-911) Plasma/Serum Blood Alcohol < 3.0 mg/dL (<10) Other Laboratory Tests 05/23/24 08:07 Brief Hx & Hospital Course: History of Present Illness 43 yr old female pmh diverticulosis, anxiety, depression, dm, fatty liver disease, fibroids surgical history left oophorectomy ovarian cancer chief complaint patient complains of pain in her left upper abdomen he also radiates to his right side of the abdomen. Patient states it is like a sharp pain she also complain of urinary frequency and urgency and darkness color to the urine she denies any blood in her urine no flank pain no fever no chest pain no shortness with the breath. She denies any vaginal bleeding no odor no discharge. Patient states the pain is worse when she moved or cough nothing makes it better. She states it feels like the gallbladder issues she had when she came last year in 2022 she was concerned for that. When evaluating patient's labs and imaging from the ED morphine was given normal saline Zofran CBC was unremarkable sodium was 135 potassium was 3.4 glucose was 117. No imaging was completed prior to admission. With these findings we will admit patient for further workup and care. Course of hospitalization: Patient was placed on full liquid diet. Patient was abdominal pain improved. Patient also reports that she had questionable respiratory virus several days prior to coming in the hospital. Patient's diet will be advanced, with the patient being discharged home given probable etiology of her abdominal pain being ETOH use as well as viral gastroenteritis. She will follow up with her PCP in 1-2 weeks. No new prescriptions will be provided at this time. Physical examination General: Alert and Oriented x3. No acute distress. Well-nourished. Obese Eyes: EOMI. Anicteric. HENT: Moist mucous membranes. Lungs: Clear to auscultation bilaterally. No accessory muscle use. Cardiovascular: Regular rate and rhythm. No murmur. No JVD. Abdomen: Soft, non-tender and non-distended. No palpable masses. Extremities: No edema. Non-tender. Skin: No rashes or lesions. Warm. Neurologic: No focal neurological deficits. CN II-XII grossly intact, but not individually tested. Psychiatric: Cooperative. Appropriate mood and affect. Total time spent with patient discussing and formulating plan of care: 35 minutes. This medical document was created using an electronic medical record system with [employer] dictation system. Although this document has been carefully reviewed, there may still be some phonetic and typographical errors. These areas are purely typographical due to imperfections of the software programs, and do not reflect any compromise in the patient's medical care. Condition at Discharge: Guarded Final Diagnosis/Problems List Viral gastroenteritis Secondary Diagnosis: acute intractable abdominal pain acute mild hypokalemia acute etoh use last use yesterday using daily for the last month uncontrolled type 2 dm chronic anxiety/depression chronic diverticulosis chronic fibroids Chronic fatty liver disease Discharge Disposition: Home Discharge Instruct/Medications Diet: Regular, Consistent carbohydrate Activity: No Restrictions, As Tolerated Follow Up/Referral: PCP Dr. Vázquez in 1-2 weeks Medications: Continue all previous home medications 36 Discharge Statement: "Patient was advised to return to the ER or call 911 if any headaches, dizziness, shortness of breath, chest pain, abdominal pain, bleeding, fevers, or worsening of medical condition. Patient was counseled about treatment plan, medications, possible side effects, patientverbalized understanding. All questions were answered to the best of my ability. This discharge took greater then 30 minutes in planning, reviewing documentation, counseling the patient, and discussing with other team members." ASSESSMENT ASSESSMENT Assessment Viral gastroenteritis Date of Service: May 23, 2024 Billing Provider: HAILY MONTAÑO NP Common Visit Codes: [id number] INP/OBS CARE(HIGH) HAILY MONTAÑO NP May 23, 2024 13:39
== END 2024-05-23 15:30 | disposition home or self-care (01) | DRG 249 ==
LOC: ER 06:23 → OVERFLOW 11:27 → ER 11:30 → EAST 14:17
PROVIDERS: ADMIT Nurse Practitioner Family; ATTEND Nurse Practitioner Acute Care
DX: A08.4 Viral intestinal infection, unspecified (principal); K76.0 Fatty (change of) liver, not elsewhere classified; D25.9 Leiomyoma of uterus, unspecified; E87.6 Hypokalemia; F32.A Depression, unspecified; F41.9 Anxiety disorder, unspecified; K57.30 Diverticulosis of large intestine without perforation or abscess without bleeding; E11.9 Type 2 diabetes mellitus without complications; F10.939 Alcohol use, unspecified with withdrawal, unspecified; Y90.9 Presence of alcohol in blood, level not specified; Z88.0 Allergy status to penicillin; Z90.721 Acquired absence of ovaries, unilateral; Z85.43 Personal history of malignant neoplasm of ovary; Z83.3 Family history of diabetes mellitus
CPT/HCPCS: 36415; 74176; 80048; 80053; 80320; 81001; 81025; 82607; 82962; 83690; 83735; 84100; 85025; 96361; 96374; 96375; G0378; J2405; J2470